=== PATIENT | male | born 1985 | race Caucasian/White ===

== ENCOUNTER 2020-12-18 06:10 | Emergency (ER) | payer SELFPAY ==
[~2020-12-18] VITALS: Ht 175.3 cm; Wt 92.1 kg
[~2020-12-18 06:10] MED LIST: ADDERALL XR 3030 MG PO
[2020-12-18] MEDS ORDERED: TESSALON PERLE100 MG PO (06:37)
[2020-12-18] MEDS ORDERED: UNISOM50 MG PO (06:38)
[2020-12-18] MEDS ORDERED: UNISOM SLEEP AI25 MG PO (06:39)
== END 2020-12-18 06:44 | disposition home or self-care (01) ==
LOC: ER 06:32
DX: R05 Cough (principal); U07.1 COVID-19; F98.8 Other specified behavioral and emotional disorders with onset usually occurring in childhood and adolescence
CPT/HCPCS: 99282